=== PATIENT | female | born 1970 | race African-American/Black ===

== ENCOUNTER 2022-03-17 23:11 | Emergency (ER) | payer BC, MEDICAID ==
[~2022-03-17] VITALS: Ht 154.9 cm; Wt 81.4 kg
[~2022-03-17 23:11] MED LIST: CLON0.1T; HYDROCHLOROTHIAZIDE; LISINOPRIL; NAPROXEN; OMEPRAZOLE
[2022-03-17 23:25] VITALS: BP 148/67
== END 2022-03-18 01:58 | disposition left against medical advice (07) ==
LOC: ER 23:11
DX: Z53.21 Procedure and treatment not carried out due to patient leaving prior to being seen by health care provider (principal)